=== PATIENT | female | born 1970 | race Hispanic/Latino ===

== ENCOUNTER 2021-05-20 03:23 | Inpatient (IN) | payer MEDICARE ==
[~2021-05-20] VITALS: Ht 162.6 cm; Wt 84.4 kg
[2021-05-20] MEDS ORDERED: DEXAMETHASONE SOD PHOS 10 MG/1 ML VIAL IV ONE (03:30)
[2021-05-20] MEDS ORDERED: CEFTRIAXONE 2 GM in SODIUM CHLORIDE 0.9% 100 ML IV ONE (03:30)
[2021-05-20 03:42] LABS: BASOPHILS % 0.1 % (0.0-1.0); HEMATOCRIT 38.3 % (34.2-44.1); HEMOGLOBIN 12.5 g/dL (12.0-16.0); LYMPHOCYTES # (AUTO) 1.1 (1.0-3.2); LYMPHOCYTES % 13.3 % (18.0-39.1); MEAN CORPUSCULAR HEMOGLOBIN 29.4 pg (28-32); MEAN CORPUSCULAR HGB CONC 32.6 g/dL (31-35); MEAN CORPUSCULAR VOLUME 90.1 fL (81-99); MONOCYTES # (AUTO) 0.4 (0.2-0.8); NEUTROPHILS # (AUTO) 6.8 (2.1-6.9); NEUTROPHILS % 81.1 % (38.7-80.0); PLATELET COUNT 304 x10e3/uL (140-360); RED BLOOD COUNT 4.25 x10e6/uL (3.6-5.1); RED CELL DISTRIBUTION WIDTH 13.3 % (11.7-14.4)
[2021-05-20] MEDS ORDERED: ACETAMINOPHEN 325 MG TAB PO ONE (03:45)
[2021-05-20 04:01] LABS: ALBUMIN 3.1 g/dL (3.5-5.0); ALBUMIN/GLOBULIN RATIO 0.7 (0.8-2.0); ANION GAP 16.3 mmol/L (8-16); CALCIUM 8.5 mg/dL (8.4-10.2); CREATININE, SERUM 0.64 mg/dL (0.57-1.11); POTASSIUM 3.3 mmol/L (3.5-5.1)
[2021-05-20 04:07] LABS: CREATINE KINASE MB 0.4 ng/mL (0-5.0)
[2021-05-20] MEDS ORDERED: ONDANSETRON HCL INJ 2MG/ML 2ML 2 MG/ML VIAL IV PRN (04:30)
[2021-05-20] MEDS ORDERED: SODIUM CHLORIDE FLUSH 10 ML SYR INJ PRN (04:30)
[2021-05-20] MEDS ORDERED: DOCUSATE SODIUM 100 MG CAP PO PRN (06:30)
[2021-05-20] MEDS ORDERED: GUAIFENESIN/DEXTROMETHORPHAN LIQD 5 ML UDC NG PRN (06:30)
[2021-05-20] MEDS: LORATADINE 10 MG TAB PO SCH (09:19)
[2021-05-20] MEDS: ZINC SULFATE 50 MG CAP PO SCH (09:19)
[2021-05-20] MEDS: ASCORBIC ACID 500 MG TAB PO SCH ×2 (09:19→16:50)
[2021-05-20] MEDS: BENZONATATE 100 MG CAP PO SCH ×3 (09:19→20:44)
[2021-05-20] MEDS: ENOXAPARIN 30 MG/0.3 ML SYR SC SCH ×2 (09:19→16:50)
[2021-05-20] MEDS ORDERED: REMDESIVIR 200MG 200 MG in SODIUM CHLORIDE 0.9% 100 ML 100 ML IV ONE (11:00)
[2021-05-20 11:30] LABS: CREATINE KINASE MB 0.8 ng/mL (0-5.0)
[2021-05-20 16:31] VITALS: BP 111/68
[2021-05-20 16:32] VITALS: BP 111/68
[2021-05-20 16:33] VITALS: BP 111/68
[2021-05-20 20:00] VITALS: BP_SYST 111; BP_SYST 114; BP_DIAS 68; BP_DIAS 83
[2021-05-20 20:12] LABS: CREATINE KINASE MB 0.9 ng/mL (0-5.0)
[2021-05-20] MEDS ORDERED: ZOLPIDEM TARTRATE 5 MG TAB PO PRN (21:00)
[2021-05-20 23:47] VITALS: BP 118/73
[2021-05-20 23:49] VITALS: BP 118/73
[2021-05-21] VITALS (8 sets, daily range): BP systolic 97–124; BP diastolic 62–74
[2021-05-21] MEDS: CEFTRIAXONE 2 GM in SODIUM CHLORIDE 0.9% 100 ML IV SCH (04:15)
[2021-05-21] MEDS ORDERED: SODIUM CHLORIDE 0.9% 250ML 250 ML ONE (04:28)
[2021-05-21] MEDS: ASCORBIC ACID 500 MG TAB PO SCH ×2 (08:12→16:48)
[2021-05-21] MEDS: DEXAMETHASONE SOD PHOS 10 MG/1 ML VIAL IV SCH (08:13)
[2021-05-21] MEDS: BENZONATATE 100 MG CAP PO SCH ×3 (08:13→21:21)
[2021-05-21] MEDS: LORATADINE 10 MG TAB PO SCH (08:13)
[2021-05-21] MEDS: ZINC SULFATE 50 MG CAP PO SCH (08:13)
[2021-05-21] MEDS: ENOXAPARIN 30 MG/0.3 ML SYR SC SCH ×2 (08:13→16:48)
[2021-05-21 08:46] LABS: BASOPHILS % 0.1 % (0.0-1.0); HEMATOCRIT 37.5 % (34.2-44.1); HEMOGLOBIN 12.1 g/dL (12.0-16.0); LYMPHOCYTES # (AUTO) 0.9 (1.0-3.2); MEAN CORPUSCULAR HEMOGLOBIN 29.6 pg (28-32); MEAN CORPUSCULAR HGB CONC 32.3 g/dL (31-35); MEAN CORPUSCULAR VOLUME 91.7 fL (81-99); MONOCYTES # (AUTO) 0.7 (0.2-0.8); MONOCYTES % 6.8 % (4.4-11.3); NEUTROPHILS # (AUTO) 8.5 (2.1-6.9); NEUTROPHILS % 83.5 % (38.7-80.0); PLATELET COUNT 366 x10e3/uL (140-360); RED BLOOD COUNT 4.09 x10e6/uL (3.6-5.1); RED CELL DISTRIBUTION WIDTH 13.2 % (11.7-14.4)
[2021-05-21 09:07] LABS: ALBUMIN 2.7 g/dL (3.5-5.0); ALBUMIN/GLOBULIN RATIO 0.6 (0.8-2.0); ANION GAP 15.3 mmol/L (8-16); CALCIUM 8.7 mg/dL (8.4-10.2); CREATININE, SERUM 0.59 mg/dL (0.57-1.11); POTASSIUM 3.3 mmol/L (3.5-5.1)
[2021-05-21] MEDS: REMDESIVIR 100MG 100 MG in SODIUM CHLORIDE 0.9% 100 ML IV SCH (13:22)
[2021-05-22] VITALS (9 sets, daily range): BP systolic 109–139; BP diastolic 60–77
[2021-05-22] MEDS ORDERED: SODIUM CHLORIDE 0.9% 1000ML 1,000 ML ONE (04:59)
[2021-05-22] MEDS: CEFTRIAXONE 2 GM in SODIUM CHLORIDE 0.9% 100 ML IV SCH (05:07)
[2021-05-22] MEDS: ACETAMINOPHEN 325 MG TAB PO PRN ×2 (05:12→21:43)
[2021-05-22 07:09] LABS: HEMATOCRIT 35.5 % (34.2-44.1); LYMPHOCYTES % 16.8 % (18.0-39.1); MEAN CORPUSCULAR VOLUME 93.7 fL (81-99); MONOCYTES # (AUTO) 0.5 (0.2-0.8); MONOCYTES % 8.5 % (4.4-11.3); NEUTROPHILS # (AUTO) 4.5 (2.1-6.9); PLATELET COUNT 373 x10e3/uL (140-360); RED BLOOD COUNT 3.79 x10e6/uL (3.6-5.1); RED CELL DISTRIBUTION WIDTH 13.4 % (11.7-14.4)
[2021-05-22 07:25] LABS: ALBUMIN 2.6 g/dL (3.5-5.0); ALBUMIN/GLOBULIN RATIO 0.7 (0.8-2.0); ANION GAP 15.3 mmol/L (8-16); CALCIUM 8.3 mg/dL (8.4-10.2); CREATININE, SERUM 0.5 mg/dL (0.57-1.11); POTASSIUM 3.3 mmol/L (3.5-5.1)
[2021-05-22] MEDS: DEXAMETHASONE SOD PHOS 10 MG/1 ML VIAL IV SCH (08:17)
[2021-05-22] MEDS: ASCORBIC ACID 500 MG TAB PO SCH ×2 (08:18→15:55)
[2021-05-22] MEDS: BENZONATATE 100 MG CAP PO SCH ×3 (08:18→21:42)
[2021-05-22] MEDS: LORATADINE 10 MG TAB PO SCH (08:18)
[2021-05-22] MEDS: ENOXAPARIN 30 MG/0.3 ML SYR SC SCH ×2 (08:19→15:55)
[2021-05-22] MEDS: ZINC SULFATE 50 MG CAP PO SCH (08:19)
[2021-05-22] MEDS ORDERED: POTASSIUM CHLORIDE 20 MEQ TAB CR PO STA (13:05)
[2021-05-22] MEDS: REMDESIVIR 100MG 100 MG in SODIUM CHLORIDE 0.9% 100 ML IV SCH (14:01)
[2021-05-23 00:19] VITALS: BP 140/78
[2021-05-23 04:24] VITALS: BP 138/82
[2021-05-23] MEDS: CEFTRIAXONE 2 GM in SODIUM CHLORIDE 0.9% 100 ML IV SCH (05:01)
[2021-05-23 07:53] LABS: BASOPHILS % 0.1 % (0.0-1.0); HEMATOCRIT 35.6 % (34.2-44.1); HEMOGLOBIN 11.1 g/dL (12.0-16.0); LYMPHOCYTES # (AUTO) 1.2 (1.0-3.2); LYMPHOCYTES % 15.2 % (18.0-39.1); MEAN CORPUSCULAR HEMOGLOBIN 29.1 pg (28-32); MEAN CORPUSCULAR HGB CONC 31.2 g/dL (31-35); MEAN CORPUSCULAR VOLUME 93.4 fL (81-99); MONOCYTES # (AUTO) 0.7 (0.2-0.8); MONOCYTES % 9.5 % (4.4-11.3); NEUTROPHILS # (AUTO) 5.7 (2.1-6.9); NEUTROPHILS % 74.2 % (38.7-80.0); PLATELET COUNT 403 x10e3/uL (140-360); RED BLOOD COUNT 3.81 x10e6/uL (3.6-5.1); RED CELL DISTRIBUTION WIDTH 13.3 % (11.7-14.4)
[2021-05-23 08:13] LABS: ALBUMIN 2.6 g/dL (3.5-5.0); ALBUMIN/GLOBULIN RATIO 0.7 (0.8-2.0); ANION GAP 11.9 mmol/L (8-16); CALCIUM 8.3 mg/dL (8.4-10.2); CREATININE, SERUM 0.45 mg/dL (0.57-1.11); POTASSIUM 3.9 mmol/L (3.5-5.1)
[2021-05-23] MEDS ORDERED: ONDANSETRON HCL 4 MG ORAL DISINTEGRATING TAB PO PRN (08:30)
[2021-05-23] MEDS: BENZONATATE 100 MG CAP PO SCH (09:03)
[2021-05-23] MEDS: ZINC SULFATE 50 MG CAP PO SCH (09:03)
[2021-05-23] MEDS: ASCORBIC ACID 500 MG TAB PO SCH (09:03)
[2021-05-23] MEDS: ENOXAPARIN 30 MG/0.3 ML SYR SC SCH (09:03)
[2021-05-23] MEDS: DEXAMETHASONE SOD PHOS 10 MG/1 ML VIAL IV SCH (09:04)
[2021-05-23] MEDS: LORATADINE 10 MG TAB PO SCH (09:04)
[2021-05-23 09:51] VITALS: BP 125/69
[2021-05-23 09:52] VITALS: BP 125/69
[2021-05-23] MEDS: REMDESIVIR 100MG 100 MG in SODIUM CHLORIDE 0.9% 100 ML IV SCH (13:41)
[2021-05-23 14:07] VITALS: BP 115/71
[2021-05-23 14:08] VITALS: BP 115/71
[2021-05-24] MEDS ORDERED: AZITHROMYCIN 250 MG TAB PO SCH (04:30)
== END 2021-05-23 15:19 | disposition home or self-care (01) | DRG 177 ==
LOC: ER 03:27 → ERHOLD 05:31 → IMCU 14:51
PROVIDERS: ADMIT Internal Medicine; ATTEND Internal Medicine
PROC: 8E0ZXY6 Isolation (ICD-10-PCS; principal; 2021-05-20)
PROC: XW033E5 Introduction of Remdesivir Anti-infective into Peripheral Vein, Percutaneous Approach, New Technology Group 5 (ICD-10-PCS; 2021-05-21)
DX: U07.1 COVID-19 (principal); J12.82 Pneumonia due to coronavirus disease 2019; J96.00 Acute respiratory failure, unspecified whether with hypoxia or hypercapnia; E87.6 Hypokalemia; E66.9 Obesity, unspecified; Z68.31 Body mass index [BMI] 31.0-31.9, adult; M06.9 Rheumatoid arthritis, unspecified
CPT/HCPCS: 36415; 71045; 80053; 82550; 82553; 84484; 85025; 86140; 87040; 93005; 99285; J0456; J0696; J1100; J1650; J7030; J7050; U0002